=== PATIENT | male | born 1985 | race Caucasian/White ===

== ENCOUNTER 2017-07-31 06:02 | Day surgery (SDC) | payer MEDICAID ==
[2017-07-28 13:44] LABS: Eosinophils # (auto) 0.1 uL; Eosinophils % (auto) 2.3 % (0.0-7.0); Lymphocytes # (auto) 1.2 uL; Monocytes # (auto) 0.4 uL; Nucleated Red Blood Cells % 0.2 %
[2017-07-28 13:47] LABS: Basophils # (auto) 0.1 uL; Hematocrit 51.9 % (41.0-53.0); Hemoglobin 18.2 g/dL (13.5-17.5); Lymphocytes % (auto) 22.8 % (10.0-50.0); Mean Corpuscular Hemoglobin 31.6 pg (28.0-32.0); Mean Corpuscular Hgb Conc. 35.1 g/dL (32.0-36.0); Mean Corpuscular Volume 90.1 fL (80.0-100.0); Monocytes % (auto) 8.6 % (0.0-12.0); Neutrophils # (auto) 3.4 uL; Neutrophils % (auto) 65.3 % (37.0-80.0); Platelet Count (auto) 164 10^3/uL (140-450); Red Cell Distribution Width 13.4 % (11.8-14.3); White Blood Cell 5.1 10^3/uL (4.4-10.8)
[2017-07-28 13:59] LABS: Albumin 3.8 g/dL (3.4-5.0); Calcium 8.2 mg/dL (8.5-10.1); INR 0.93 (0.9-1.15); Partial Thromboplastin Time 30.4 sec (22.64-33.71); Potassium 3.8 mmol/L (3.5-5.1); Prothrombin Time 10.1 sec (9.37-12.3)
[2017-07-28 14:02] LABS: Bilirubin, Total 0.7 mg/dL (0.2-1.0); Total Protein 6.9 g/dL (6.4-8.2)
[~2017-07-31] VITALS: Ht 180.3 cm; Wt 133.8 kg
[~2017-07-31 06:02] MED LIST: ACE3T PO; ALPR0.25 PO
[2017-07-31] MEDS ORDERED: METOCLOPRAMIDE HCL 5MG/ml INJ 2ml VIAL ONE (07:00)
[2017-07-31] MEDS ORDERED: SODIUM CHLORIDE LOCK 10 ML ONE (07:00)
[2017-07-31] MEDS ORDERED: MIDAZOLAM HCL 1MG/1ML-2 ML VIAL ONE (07:00)
[2017-07-31] MEDS ORDERED: ROCURONIUM 10MG/ML 10ML VIAL IV ONE (07:00)
[2017-07-31] MEDS ORDERED: MEPERIDINE HCL (50 MG/ML) 1 ML VIAL ONE (07:00)
[2017-07-31] MEDS ORDERED: fentaNYL CITRATE 100 MCG/2 ML VL ONE (07:00)
[2017-07-31] MEDS ORDERED: PROPOFOL 10 MG/ML 20 ML IV ONE (07:00)
[2017-07-31] MEDS ORDERED: LIDOCAINE 1% HCL (LOCAL ANESTH.) INJ 20ML MDV ONE (07:24)
[2017-07-31] MEDS ORDERED: BUPIVACAINE W/ EPINEPH 0.25% INJ 50ML MDV ONE (07:24)
[2017-07-31] MEDS ORDERED: LIDOCAINE W/ EPINEPHRINE 1 % INJ 30ML ONE (07:24)
[2017-07-31] MEDS ORDERED: BUPIVACAINE 0.25% INJ 50ML VIAL ONE (07:24)
[2017-07-31] MEDS ORDERED: ceFAZolin 1GM/50ML D5W 50 ML IV ONE (07:29)
[2017-07-31] MEDS ORDERED: KETOROLAC TROMETH 30 MG/ML 1ML VIAL IV ONE (07:30)
[2017-07-31] MEDS ORDERED: HYDROmorphone HCL 2 MG/ML VL IV PRN (07:30)
[2017-07-31] MEDS ORDERED: METOCLOPRAMIDE HCL 5MG/ml INJ 2ml VIAL IV ONE (07:30)
[2017-07-31] MEDS ORDERED: ceFAZolin 1GM VL ONE (08:03)
[2017-07-31] MEDS ORDERED: GLYCOPYRROLATE 0.2 MG/ML 1ML VIAL ONE (08:20)
[2017-07-31] MEDS ORDERED: KETOROLAC TROMETH 60MG/2ML VIAL IM ONE (08:20)
[2017-07-31] MEDS ORDERED: NEOSTIGMINE 1 MG/ML INJ (10mg/10ML VIAL) ONE (08:20)
[2017-07-31 09:54] VITALS: BP 126/78
== END 2017-07-31 10:08 | disposition home or self-care (01) ==
LOC: SUR 06:02
PROVIDERS: ATTEND Surgery Pediatric Surgery
DX: K43.6 Other and unspecified ventral hernia with obstruction, without gangrene (principal); K46.0 Unspecified abdominal hernia with obstruction, without gangrene; K66.0 Peritoneal adhesions (postprocedural) (postinfection); Z90.49 Acquired absence of other specified parts of digestive tract; Z88.0 Allergy status to penicillin; E66.01 Morbid (severe) obesity due to excess calories; Z68.41 Body mass index [BMI] 40.0-44.9, adult; J42 Unspecified chronic bronchitis
CPT/HCPCS: 49561; 49568; J1170; J2175; J2765; J3010; 36415; 80053; 85025; 85610; 85730; 88302; C1781; J0690; J1885; J2001; J2250; J2704; J3490